=== PATIENT | female | born 1990 | race American Indian/Alaskan Native ===

== ENCOUNTER 2018-03-22 19:10 | Emergency (ER) | payer OTHER ==
[2018-03-22 20:01] VITALS: BP 103/69
[2018-03-22] MEDS ORDERED: MOTRIN ONE (21:15)
[2018-03-22] MEDS ORDERED: MOTRIN PO ONE (21:25)
[2018-03-22 21:46] LABS: Basophils % (Auto) 0.2 % (0.0-1.8); Hematocrit 37.4 % (30.3-42.9); Hemoglobin 12.7 gm/dl (10.1-14.3); Lymphocytes # (Auto) 0.5 K/mm3 (1.2-5.4); Lymphocytes % (Auto) 4.6 % (13.4-35.0); Mean Corpuscular HGB Conc 34 % (30-34); Mean Corpuscular Hemoglobin 31 pg (28-32); Mean Corpuscular Volume 91 fl (79-97); Monocytes # (Auto) 0.7 K/mm3 (0.0-0.8); Monocytes % (Auto) 6.1 % (0.0-7.3); Platelet Count 232 K/mm3 (140-440); Red Blood Count 4.11 M/mm3 (3.65-5.03); Red Cell Distribution Width 14.7 % (13.2-15.2)
--- NOTE | 2018-03-22 23:03 | XRay Report ---
FINAL REPORT PROCEDURE: XR CHEST ROUTINE 2V TECHNIQUE: PA and lateral chest radiographs were obtained. CPT 83468 HISTORY: cough COMPARISON: No prior studies are available for comparison. FINDINGS: Heart: Normal. Mediastinum/Vessels: Normal. Lungs/Pleural space: Normal. Bony thorax: No acute osseous abnormality. Other: IMPRESSION: Normal examination.
--- NOTE | 2018-03-23 00:58 | Emergency Department Report ---
ED ENT HPI - General Chief complaint: Fever Stated complaint: PAIN Time Seen by Provider: 03/23/18 00:53 Source: patient Mode of arrival: Ambulatory Limitations: No Limitations - History of Present Illness Initial comments: Patient is a 27-year-old -[place] female who presents for recurrent pharyngitis with fever dysphagia and sore throat last treated 3 weeks ago with Bactrim by mouth patient is pen allergic throat pain now for 10 exacerbated by swallowing tonsillar swelling and exudate . Controlled by ibuprofen patient is tolerating by mouth intake MD complaint: sore throat Onset/Timin -: week(s) Severity: moderate Severity scale (0 -10): 3 Quality: burning, aching Consistency: constant Improves with: none Worsens with: swallowing, eating Context- Ear: recent illness, other Associated Symptoms: fever, sore throat - Related Data Previous Rx's Medication Instructions Recorded Last Taken Type Benzocaine/Menth/Cetylpyrd 8 each MM Q2H PRN #3 packet 03/23/18 Unknown Rx [Cepacol X Strength] Clindamycin [Clindamycin CAP] 300 mg PO Q6H #40 capsule 03/23/18 Unknown Rx Ibuprofen 800 mg PO TID PRN #30 tablet 03/23/18 Unknown Rx Allergies Allergy/AdvReac Type Severity Reaction Status Date / Time Penicillins Allergy Itching Verified 03/22/18 21:24 ED Dental HPI - General Chief complaint: Fever Stated complaint: PAIN Time Seen by Provider: 03/23/18 00:53 Source: patient Mode of arrival: Ambulatory Limitations: No Limitations - History of Present Illness complaint: sore throat - Related Data Previous Rx's Medication Instructions Recorded Last Taken Type Benzocaine/Menth/Cetylpyrd 8 each MM Q2H PRN #3 packet 03/23/18 Unknown Rx [Cepacol X Strength] Clindamycin [Clindamycin CAP] 300 mg PO Q6H #40 capsule 03/23/18 Unknown Rx Ibuprofen 800 mg PO TID PRN #30 tablet 03/23/18 Unknown Rx Allergies Allergy/AdvReac Type Severity Reaction Status Date / Time Penicillins Allergy Itching Verified 03/22/18 21:24 ED Review of Systems ROS: Stated complaint: PAIN Other details as noted in HPI Constitutional: chills, fever Eyes: as per HPI ENT: throat pain Respiratory: denies: cough, shortness of breath, wheezing Cardiovascular: denies: chest pain, palpitations Endocrine: no symptoms reported Gastrointestinal: denies: abdominal pain, nausea, diarrhea Genitourinary: denies: urgency, dysuria, discharge Musculoskeletal: denies: back pain, joint swelling, arthralgia Skin: denies: rash, lesions Neurological: denies: headache, weakness, paresthesias Psychiatric: denies: anxiety, depression Hematological/Lymphatic: denies: easy bleeding, easy bruising ED Past Medical Hx - Past Medical History Previous Medical History?: No - Surgical History Past Surgical History?: No - Social History Smoking Status: Never Smoker Substance Use Type: None - Medications Home Medications: Home Medications Medication Instructions Recorded Confirmed Last Taken Type Benzocaine/Menth/Cetylpyrd 8 each MM Q2H PRN #3 packet 03/23/18 Unknown Rx [Cepacol X Strength] Clindamycin [Clindamycin CAP] 300 mg PO Q6H #40 capsule 03/23/18 Unknown Rx Ibuprofen 800 mg PO TID PRN #30 tablet 03/23/18 Unknown Rx ED Physical Exam - General Limitations: No Limitations General appearance: alert, in no apparent distress - Head Head exam: Present: atraumatic, normocephalic - Eye Eye exam: Present: normal appearance, PERRL Pupils: Present: normal accommodation - ENT ENT exam: Present: mucous membranes moist, TM's normal bilaterally, normal external ear exam - Expanded ENT Exam Expanded Throat exam: Positive: tonsillar erythema, tonsillomegaly, tonsillar exudate. Negative: R peritonsillar mass, L peritonsillar mass - Neck Neck exam: Present: normal inspection, full ROM. Absent: tenderness, lymphadenopathy, thyromegaly - Respiratory Respiratory exam: Present: normal lung sounds bilaterally. Absent: respiratory distress, wheezes, stridor, chest wall tenderness - Cardiovascular Cardiovascular Exam: Present: regular rate, normal rhythm, normal heart sounds. Absent: systolic murmur, diastolic murmur, rubs, gallop - GI/Abdominal GI/Abdominal exam: Present: soft, normal bowel sounds. Absent: distended, tenderness, organomegaly, mass, bruit, pulsatile mass, hernia - Rectal Rectal exam: Present: deferred - Extremities Exam Extremities exam: Present: normal inspection - Back Exam Back exam: Present: normal inspection - Neurological Exam Neurological exam: Present: alert, oriented X3, CN II-XII intact, normal gait, reflexes normal - Psychiatric Psychiatric exam: Present: normal affect, normal mood - Skin Skin exam: Present: warm, dry, intact, normal color. Absent: rash ED Course Vital Signs 03/22/18 03/22/18 19:53 21:11 Temperature 101.3 F H Pulse Rate 128 H Respiratory 18 Rate Blood Pressure 103/69 O2 Sat by Pulse 98 100 Oximetry ED Medical Decision Making - Lab Data Result diagrams: 03/22/18 21:29 - Medical Decision Making Is bacterial pharyngitis with treated with clindamycin by mouth patient will follow with ENT in 2-3 days return to ED if symptoms worsen patient is currently tolerating by mouth without dysphagia fever improved with ibuprofen given in ED Critical care attestation.: If time is entered above; I have spent that time in minutes in the direct care of this critically ill patient, excluding procedure time. ED Disposition Clinical Impression: Pharyngitis Qualifiers: Pharyngitis/tonsillitis etiology: unspecified etiology Qualified Code(s): J02.9 - Acute pharyngitis, unspecified Disposition: TO HOME OR SELFCARE Is pt being admited?: No Does the pt Need Aspirin: No Condition: Good Instructions: Pharyngitis (ED) Prescriptions: Benzocaine/Menth/Cetylpyrd [Cepacol X Strength] 8 each MM Q2H PRN #3 packet PRN Reason: Pain , Severe (7-10) Clindamycin [Clindamycin CAP] 300 mg PO Q6H #40 capsule Ibuprofen 800 mg PO TID PRN #30 tablet PRN Reason: pain Referrals: PRIMARY CARE, [Primary Care Provider] - 3-5 Days Forms: Work/School Release Form(ED) Time of Disposition: :02
[2018-03-23] MEDS ORDERED: CLEOCIN PO ONE (01:03)
[2018-03-23] MEDS ORDERED: DECADRON IM ONE (01:03)
== END 2018-03-23 01:28 | disposition home or self-care (01) ==
LOC: ED 19:10
DX: J02.9 Acute pharyngitis, unspecified (principal)
CPT/HCPCS: 36415; 71046; 84703; 85025; 87116; 87430; 96372; 99284; J1100